=== PATIENT | female | born 1985 | race African-American/Black ===

== ENCOUNTER 2024-04-16 07:11 | Emergency (ER) | payer OTHER, SELFPAY ==
[2024-04-16] MEDS ORDERED: Ketorolac Tromethamine 30 MG (1 mL) VIAL ONE (07:55)
[2024-04-16] MEDS ORDERED: Dexamethasone 10 MG/ML VIAL ONE (07:55)
[2024-04-16] MEDS ORDERED: diphenhydrAMINE 50 MG/ML VIAL ONE (07:55)
[2024-04-16 09:26] LABS: Influenza A by NAA Not Detected (NotDetected); Influenza B by NAA Not Detected (NotDetected); RSV by NAA Not Detected (NotDetected); SARS-CoV-2 NAA Rapid Test Not Detected (NotDetected)
[2024-04-16] MEDS ORDERED: Tranexamic Acid 1,000 MG/10 ML VIAL ONE (10:08)
[2024-04-16 10:22] LABS: #Basophils 0.04 10x3/uL (0.0-0.2); #Eosinphils 0.15 10x3/uL (0.0-0.5); #Neutrophils 5.02 10x3/uL (1.5-8.4); %Basophils 0.5 % (0.0-2.0); %Eosinophils 1.9 % (0.0-6.0); %Monocytes 6.3 % (0.0-10.0); Hematocrit 32.3 % (34.9-44.5); Hemoglobin 9.4 g/dL (12.0-15.5); Mean Corpuscular HGB CONC 29.1 g/dL (32.0-36.0); Mean Corpuscular Hemoglobin 25.2 pg (27.0-33.0); Mean Corpuscular Volume 86.6 fL (81.6-98.3); Platelet Count 291 10x3/uL (150-450); Red Blood Cell (RBC) Count 3.73 10x6/uL (3.90-5.03)
[2024-04-16 11:00] LABS: ALT (SGPT) 12 U/L (8-55); AST (SGOT) 31 U/L (5-34); Alkaline Phosphatase 49 U/L (40-110); Anion Gap 14 mmol/L (10-20); BUN (Urea Nitrogen) 11 mg/dL (7.0-18.7); Bilirubin, Total 0.2 mg/dL (0.2-1.2); Calc. Creatinine Clearance 0 mL/min (70-130); Calcium 9.1 mg/dL (7.8-10.44); Carbon Dioxide 25 mmol/L (22-29); Chloride 104 mmol/L (98-107); Estimated GFR 111; Globulin 4.4 g/dL (2.4-3.5); Glucose 81 mg/dL (70-105); Potassium 4.7 mmol/L (3.5-5.1); Protein, Total 7.4 g/dL (6.0-8.3); Sodium 138 mmol/L (136-145)
== END 2024-04-16 11:31 | disposition short-term general hospital (02) ==
LOC: CSHERS 07:11
DX: T78.3XXA Angioneurotic edema, initial encounter (principal); I11.0 Hypertensive heart disease with heart failure; I50.9 Heart failure, unspecified; Z55.6 Problems related to health literacy; Z75.3 Unavailability and inaccessibility of health-care facilities
CPT/HCPCS: 0241U; 36415; 80053; 85025; 86850; 86900; 86901; 87081; 87430; 96372; 96374; 96375; J1100; J1200; J1885

== ENCOUNTER 2024-06-07 22:42 | Emergency (ER) | payer OTHER ==
[2024-06-08] MEDS ORDERED: Ondansetron PF 4 MG/2 ML Vial ONE (00:02)
[2024-06-08 00:11] LABS: #Basophils 0.03 10x3/uL (0.0-0.2); #Eosinphils 0.19 10x3/uL (0.0-0.5); #Monocytes 0.54 10x3/uL (0.0-1.1); #Neutrophils 6.87 10x3/uL (1.5-8.4); %Basophils 0.3 % (0.0-2.0); %Eosinophils 1.7 % (0.0-6.0); %Lymphocytes 31.8 % (18.0-47.0); %Monocytes 4.8 % (0.0-10.0); Hematocrit 39.5 % (34.9-44.5); Mean Corpuscular HGB CONC 30.4 g/dL (32.0-36.0); Mean Corpuscular Hemoglobin 24.9 pg (27.0-33.0); Mean Corpuscular Volume 82.1 fL (81.6-98.3); Mean Platelet Volume 11.5 fL (7.4-10.4); Platelet Count 319 10x3/uL (150-450); RBC Distribution Width 15.6 % (11.5-14.5); Red Blood Cell (RBC) Count 4.81 10x6/uL (3.90-5.03); White Blood Cell (WBC) Count 11.3 10x3/uL (3.5-10.5)
[2024-06-08 00:23] LABS: ALT (SGPT) 16 U/L (8-55); AST (SGOT) 12 U/L (5-34); Albumin 3.5 g/dL (3.5-5.0); Alkaline Phosphatase 56 U/L (40-110); Anion Gap 12 mmol/L (10-20); BUN (Urea Nitrogen) 21 mg/dL (7.0-18.7); Bilirubin, Total 0.2 mg/dL (0.2-1.2); Calc. Creatinine Clearance 0 mL/min (70-130); Calcium 9.6 mg/dL (7.8-10.44); Carbon Dioxide 30 mmol/L (22-29); Chloride 100 mmol/L (98-107); Estimated GFR 96; Globulin 3.5 g/dL (2.4-3.5); Glucose 109 mg/dL (70-105); Lipase 30 U/L (8-78); Potassium 4.2 mmol/L (3.5-5.1); Sodium 138 mmol/L (136-145)
[2024-06-08 00:29] LABS: Troponin I Less than 0.010 ng/mL (< 0.028)
[2024-06-08 00:51] LABS: Influenza A by NAA Not Detected (NotDetected); Influenza B by NAA Not Detected (NotDetected); SARS-CoV-2 NAA Rapid Test Not Detected (NotDetected)
== END 2024-06-08 01:14 | disposition home or self-care (01) ==
LOC: CSHERS 22:42
DX: R11.2 Nausea with vomiting, unspecified (principal); R19.7 Diarrhea, unspecified; I11.0 Hypertensive heart disease with heart failure; I50.9 Heart failure, unspecified; J45.909 Unspecified asthma, uncomplicated; G40.909 Epilepsy, unspecified, not intractable, without status epilepticus; Z79.899 Other long term (current) drug therapy
CPT/HCPCS: 80053; 83690; 84484; 85025; 93005; 96374; J2405

== ENCOUNTER 2024-06-20 19:23 | Emergency (ER) | payer OTHER ==
[2024-06-20] MEDS ORDERED: Ibuprofen 800 MG TAB ONE (21:14)
[2024-06-20] MEDS ORDERED: Ipratropium Bromide 2.5 ml Neb ONE (22:18)
[2024-06-20] MEDS ORDERED: Albuterol 2.5 MG (3 mL) NEB ONE (22:18)
== END 2024-06-20 22:52 | disposition home or self-care (01) ==
LOC: CSHERS 19:23
DX: H92.01 Otalgia, right ear (principal); K21.9 Gastro-esophageal reflux disease without esophagitis; I11.0 Hypertensive heart disease with heart failure; I50.9 Heart failure, unspecified
CPT/HCPCS: 94640; 94644; 94760; J7611; J7644

== ENCOUNTER 2024-11-08 08:49 | Outpatient (CLI) | payer MEDICAID, OTHER | END 2024-11-08 08:50 | disposition home or self-care (01) | LOC: CSHSLEEP 08:49 | PROVIDERS: ATTEND Internal Medicine Critical Care Medicine | DX: G47.33 Obstructive sleep apnea (adult) (pediatric) (principal); J45.909 Unspecified asthma, uncomplicated; E66.9 Obesity, unspecified; Z68.44 Body mass index [BMI] 60.0-69.9, adult; I10 Essential (primary) hypertension | CPT/HCPCS: 95811 ==

== ENCOUNTER 2025-09-06 03:21 | Emergency (ER) | payer OTHER, SELFPAY ==
[2025-09-06] MEDS ORDERED: Ipratropium Bromide 2.5 ml Neb ONE (03:59)
[2025-09-06] MEDS ORDERED: Albuterol 2.5 MG (3 mL) NEB ONE (03:59)
[2025-09-06 04:20] LABS: #Basophils 0.06 10x3/uL (0.0-0.2); #Eosinophils 0.05 10x3/uL (0.0-0.5); #Monocytes 0.39 10x3/uL (0.0-1.1); #Neutrophils 4.49 10x3/uL (1.5-8.4); %Basophils 0.7 % (0.0-2.0); %Eosinophils 0.6 % (0.0-6.0); %Lymphocytes 37.7 % (18.0-47.0); %Monocytes 4.8 % (0.0-10.0); %Neutrophils 55.5 % (40.0-75.0); Hematocrit 34.3 % (34.9-44.5); Hemoglobin 10.5 g/dL (12.0-15.5); Mean Corpuscular Hemoglobin 24.1 pg (27.0-33.0); Mean Corpuscular Volume 78.9 fL (81.6-98.3); Platelet Count 288 10x3/uL (150-450); Red Blood Cell (RBC) Count 4.35 10x6/uL (3.90-5.03); White Blood Cell (WBC) Count 8.10 10x3/uL (3.5-10.5)
[2025-09-06 04:21] LABS: Actual Bicarbonate (HCO3v) 23.6 mEq/L (22-28); Analyzer IN Cardio CS ER; Base Excess -0.4 mEq/L (-2 - +2); Calcium, Ionized (venous) 1.06 mmol/L (1.16-1.32); Chloride (VBG) 103 mmol/L (98-106); Hematocrit-VBG 34 % (36.0-47.0); Hemoglobin (Hb) 11.7 g/dL (11.7-15.5); Potassium (VBG) 3.50 mmol/L (3.70-5.30); Puncture Site Other Site; RapidComm Collect By LAB; Sodium 140 mmol/L (133-146)
[2025-09-06 04:31] LABS: BHCG - Serum Negative (NEGATIVE); Pregs Control Background? CLEAR/WHITE (CLR/WHITE); Pregs Control Bar Appear? YES (CONTROL BAR)
[2025-09-06 04:38] LABS: ALT (SGPT) 11 U/L (Less than 34); AST (SGOT) 15 U/L (11-34); Albumin 3.4 g/dL (3.1-4.5); Alkaline Phosphatase 57 U/L (40-110); Anion Gap 12 mmol/L (10-20); BUN (Urea Nitrogen) 16 mg/dL (7.0-18.7); Bilirubin, Total 0.2 mg/dL (0.3-1.2); Calc. Creatinine Clearance 0 mL/min (70-130); Calcium 8.5 mg/dL (7.8-10.44); Carbon Dioxide 27 mmol/L (22-29); Chloride 105 mmol/L (98-107); Globulin 3.3 g/dL (2.4-3.5); Glucose 109 mg/dL (70-105); Potassium 3.6 mmol/L (3.5-5.1); Sodium 140 mmol/L (136-145)
[2025-09-06 04:42] LABS: Troponin I Less than 0.010 ng/mL (< 0.028)
== END 2025-09-06 05:10 | disposition home or self-care (01) ==
LOC: CSHERS 03:21
DX: J45.901 Unspecified asthma with (acute) exacerbation (principal); I11.0 Hypertensive heart disease with heart failure; I50.9 Heart failure, unspecified; Z79.899 Other long term (current) drug therapy
CPT/HCPCS: 71045; 80053; 82805; 83880; 84484; 84703; 85025; 87428; 93005; 94644; 94760; 96374; 96375; J2060; J2919; J7611; J7644

== ENCOUNTER 2025-09-07 04:52 | Inpatient (IN) | payer OTHER, SELFPAY ==
[2025-09-07] MEDS ORDERED: Albuterol 2.5 MG (3 mL) NEB ONE (05:56)
[2025-09-07] MEDS ORDERED: Azithromycin 500 MG VIAL ONE (06:02)
[2025-09-07] MEDS ORDERED: Dexamethasone 10 MG/ML VIAL ONE (06:02)
[2025-09-07] MEDS ORDERED: Magnesium 2 GM/50 ML BAG (IN WATER) ONE (06:03)
[2025-09-07] MEDS ORDERED: cefTRIAXone (ROCEPHIN) 2 GM VIAL ONE (06:03)
[2025-09-07 06:36] LABS: BHCG - Serum Negative (NEGATIVE); Pregs Control Background? CLEAR/WHITE (CLR/WHITE); Pregs Control Bar Appear? YES (CONTROL BAR)
[2025-09-07 06:45] LABS: ALT (SGPT) 11 U/L (Less than 34); AST (SGOT) 16 U/L (11-34); Albumin 3.7 g/dL (3.1-4.5); Alkaline Phosphatase 61 U/L (40-110); Anion Gap 16 mmol/L (10-20); BUN (Urea Nitrogen) 15 mg/dL (7.0-18.7); Bilirubin, Total 0.3 mg/dL (0.3-1.2); Calc. Creatinine Clearance 0 mL/min (70-130); Calcium 8.8 mg/dL (7.8-10.44); Carbon Dioxide 24 mmol/L (22-29); Chloride 109 mmol/L (98-107); Globulin 3.5 g/dL (2.4-3.5); Glucose 78 mg/dL (70-105); Potassium 4.2 mmol/L (3.5-5.1); Sodium 145 mmol/L (136-145)
[2025-09-07 07:14] LABS: #Basophils Less than 0.03 10x3/uL (0.0-0.2); #Eosinophils Less than 0.03 10x3/uL (0.0-0.5); #Monocytes 0.40 10x3/uL (0.0-1.1); #Neutrophils 7.92 10x3/uL (1.5-8.4); %Basophils 0.1 % (0.0-2.0); %Eosinophils 0.0 % (0.0-6.0); %Lymphocytes 16.2 % (18.0-47.0); %Monocytes 4.0 % (0.0-10.0); %Neutrophils 79.3 % (40.0-75.0); Hematocrit 35.3 % (34.9-44.5); Hemoglobin 10.5 g/dL (12.0-15.5); Mean Corpuscular Hemoglobin 24.0 pg (27.0-33.0); Mean Corpuscular Volume 80.6 fL (81.6-98.3); Platelet Count 271 10x3/uL (150-450); Red Blood Cell (RBC) Count 4.38 10x6/uL (3.90-5.03); White Blood Cell (WBC) Count 9.99 10x3/uL (3.5-10.5)
[2025-09-07 07:36] LABS: Troponin I Less than 0.010 ng/mL (< 0.028)
[2025-09-07] MEDS ORDERED: Oseltamivir 75 MG CAP ONE (07:48)
[2025-09-07 08:07] LABS: Actual Bicarbonate (HCO3v) 24.4 mEq/L (22-28); Analyzer IN Cardio CS ER; Base Excess 2.1 mEq/L (-2 - +2); Calcium, Ionized (venous) 0.99 mmol/L (1.16-1.32); Chloride (VBG) 106 mmol/L (98-106); Hematocrit-VBG 35 % (36.0-47.0); Hemoglobin (Hb) 11.8 g/dL (11.7-15.5); Potassium (VBG) 3.38 mmol/L (3.70-5.30); Puncture Site Other Site; RapidComm Collect By LAB; Sodium 141 mmol/L (133-146)
[2025-09-07] MEDS ORDERED: Albuterol 2.5 MG (3 mL) NEB NEB PRN (11:50)
[2025-09-07] MEDS ORDERED: Benzonatate 100 MG CAP PO PRN (11:53)
[2025-09-07] MEDS ORDERED: Senokot S 8.6-50 MG TAB PO PRN (11:57)
[2025-09-07] MEDS ORDERED: levETIRAcetam 500 MG TAB ONE (13:45)
[2025-09-07] MEDS ORDERED: Divalproex Sodium DR 500 MG TAB ONE (13:45)
[2025-09-07] MEDS ORDERED: Furosemide 40 MG (4 mL) VIAL ONE (13:45)
[2025-09-07] MEDS ORDERED: Gabapentin 300 MG CAP ONE (13:51)
[2025-09-07] MEDS: Gabapentin 300 MG CAP PO SCH ×2 (14:14→21:10)
[2025-09-07] MEDS: Divalproex Sodium 125 mg Sprinkle Capsule PO SCH (14:15)
[2025-09-07] MEDS: levETIRAcetam 500 MG TAB PO SCH ×2 (14:15→21:14)
[2025-09-07] MEDS: Furosemide 40 MG (4 mL) VIAL SLOW IVP SCH (14:15)
[2025-09-07] MEDS ORDERED: Mometasone 100 MCG/Formoterol 5 MCG 60 PUFF AEROSOL INH SCH (18:30)
[2025-09-07] MEDS: Oseltamivir 75 MG CAP PO SCH (21:14)
[2025-09-07] MEDS: Mupirocin 1 GM TUBE TP SCH (21:22)
[2025-09-08] MEDS: cefTRIAXone\\ROCEPHIN 1 GM in Sodium Chloride 0.9% 100 ML IVPB SCH (04:31)
[2025-09-08 04:51] LABS: #Basophils Less than 0.03 10x3/uL (0.0-0.2); #Eosinophils 0.17 10x3/uL (0.0-0.5); #Monocytes 0.36 10x3/uL (0.0-1.1); #Neutrophils 4.77 10x3/uL (1.5-8.4); %Basophils 0.0 % (0.0-2.0); %Eosinophils 2.9 % (0.0-6.0); %Lymphocytes 8.9 % (18.0-47.0); %Monocytes 6.2 % (0.0-10.0); %Neutrophils 81.5 % (40.0-75.0); Hematocrit 31.9 % (34.9-44.5); Hemoglobin 9.6 g/dL (12.0-15.5); Mean Corpuscular Hemoglobin 24.4 pg (27.0-33.0); Mean Corpuscular Volume 81.0 fL (81.6-98.3); Platelet Count 261 10x3/uL (150-450); Red Blood Cell (RBC) Count 3.94 10x6/uL (3.90-5.03); White Blood Cell (WBC) Count 5.85 10x3/uL (3.5-10.5)
[2025-09-08 05:04] LABS: Anion Gap 11 mmol/L (10-20); BUN (Urea Nitrogen) 13 mg/dL (7.0-18.7); Calc. Creatinine Clearance 336 mL/min (70-130); Calcium 8.6 mg/dL (7.8-10.44); Carbon Dioxide 29 mmol/L (22-29); Chloride 101 mmol/L (98-107); Glucose 164 mg/dL (70-105); Potassium 3.9 mmol/L (3.5-5.1); Sodium 137 mmol/L (136-145)
[2025-09-08] MEDS: Azithromycin 500 MG in Sodium Chloride 0.9% 250 ML 250 ML IVPB SCH (05:52)
[2025-09-08] MEDS: Enoxaparin 40 MG (0.4 mL) SYRINGE SC SCH (07:58)
[2025-09-08] MEDS: Mupirocin 1 GM TUBE TP SCH (07:59)
[2025-09-08] MEDS: Divalproex Sodium 125 mg Sprinkle Capsule PO SCH (08:12)
[2025-09-08] MEDS: Furosemide 40 MG (4 mL) VIAL SLOW IVP SCH (11:51)
[2025-09-08] MEDS: Benzonatate 100 MG CAP PO SCH ×2 (11:52→18:27)
[2025-09-08] MEDS: Enoxaparin 60 MG (0.6 mL) SYRINGE SC SCH (21:20)
[2025-09-08] MEDS: Famotidine 20 MG TAB PO SCH (21:22)
[2025-09-09 03:40] LABS: #Basophils Less than 0.03 10x3/uL (0.0-0.2); #Eosinophils Less than 0.03 10x3/uL (0.0-0.5); #Monocytes 0.49 10x3/uL (0.0-1.1); #Neutrophils 5.97 10x3/uL (1.5-8.4); %Basophils 0.0 % (0.0-2.0); %Eosinophils 0.0 % (0.0-6.0); %Lymphocytes 9.0 % (18.0-47.0); %Monocytes 6.9 % (0.0-10.0); %Neutrophils 83.7 % (40.0-75.0); Hematocrit 34.1 % (34.9-44.5); Hemoglobin 10.1 g/dL (12.0-15.5); Mean Corpuscular Hemoglobin 24.2 pg (27.0-33.0); Mean Corpuscular Volume 81.8 fL (81.6-98.3); Platelet Count 287 10x3/uL (150-450); Red Blood Cell (RBC) Count 4.17 10x6/uL (3.90-5.03); White Blood Cell (WBC) Count 7.13 10x3/uL (3.5-10.5)
[2025-09-09 03:52] LABS: Anion Gap 13 mmol/L (10-20); BUN (Urea Nitrogen) 14 mg/dL (7.0-18.7); Calc. Creatinine Clearance 352 mL/min (70-130); Calcium 8.9 mg/dL (7.8-10.44); Carbon Dioxide 30 mmol/L (22-29); Chloride 99 mmol/L (98-107); Glucose 215 mg/dL (70-105); Potassium 3.9 mmol/L (3.5-5.1); Sodium 138 mmol/L (136-145)
[2025-09-09] MEDS: Furosemide 40 MG (4 mL) VIAL SLOW IVP SCH (09:49)
[2025-09-09] MEDS: Mag-Al 1200 mg/1200 mg/30 ML UDCUP PO SCH (09:54)
[2025-09-09] MEDS ORDERED: HYDROcodone/Chlorphen Polis 5 ML UDCUP PO PRN (13:05)
[2025-09-10 03:19] LABS: #Basophils Less than 0.03 10x3/uL (0.0-0.2); #Eosinophils Less than 0.03 10x3/uL (0.0-0.5); #Monocytes 0.62 10x3/uL (0.0-1.1); #Neutrophils 7.95 10x3/uL (1.5-8.4); %Basophils 0.1 % (0.0-2.0); %Eosinophils 0.0 % (0.0-6.0); %Lymphocytes 10.6 % (18.0-47.0); %Monocytes 6.4 % (0.0-10.0); %Neutrophils 82.5 % (40.0-75.0); Hematocrit 34.4 % (34.9-44.5); Hemoglobin 10.2 g/dL (12.0-15.5); Mean Corpuscular Hemoglobin 24.2 pg (27.0-33.0); Mean Corpuscular Volume 81.5 fL (81.6-98.3); Platelet Count 294 10x3/uL (150-450); Red Blood Cell (RBC) Count 4.22 10x6/uL (3.90-5.03); White Blood Cell (WBC) Count 9.64 10x3/uL (3.5-10.5)
[2025-09-10 03:33] LABS: Anion Gap 12 mmol/L (10-20); BUN (Urea Nitrogen) 16 mg/dL (7.0-18.7); Calc. Creatinine Clearance 334 mL/min (70-130); Calcium 8.7 mg/dL (7.8-10.44); Carbon Dioxide 31 mmol/L (22-29); Chloride 97 mmol/L (98-107); Glucose 180 mg/dL (70-105); Potassium 4.2 mmol/L (3.5-5.1); Sodium 136 mmol/L (136-145)
[2025-09-10] MEDS: guaiFENesin/Codeine Phosphate 100 mg/10 mg 5 ml UD Cup PO PRN (11:21)
[2025-09-10] MEDS: Acetaminophen 325 MG TAB PO PRN (11:21)
[2025-09-10] MEDS: Benzocaine/Menthol 1 LOZ LOZ PO PRN (14:03)
[2025-09-11 04:03] LABS: #Basophils Less than 0.03 10x3/uL (0.0-0.2); #Eosinophils Less than 0.03 10x3/uL (0.0-0.5); #Monocytes 0.68 10x3/uL (0.0-1.1); #Neutrophils 7.64 10x3/uL (1.5-8.4); %Basophils 0.2 % (0.0-2.0); %Eosinophils 0.0 % (0.0-6.0); %Lymphocytes 12.4 % (18.0-47.0); %Monocytes 7.1 % (0.0-10.0); %Neutrophils 79.9 % (40.0-75.0); Hematocrit 37.3 % (34.9-44.5); Hemoglobin 11.2 g/dL (12.0-15.5); Mean Corpuscular Hemoglobin 24.3 pg (27.0-33.0); Mean Corpuscular Volume 81.1 fL (81.6-98.3); Platelet Count 302 10x3/uL (150-450); Red Blood Cell (RBC) Count 4.60 10x6/uL (3.90-5.03); White Blood Cell (WBC) Count 9.57 10x3/uL (3.5-10.5)
[2025-09-11 04:16] LABS: Anion Gap 15 mmol/L (10-20); BUN (Urea Nitrogen) 17 mg/dL (7.0-18.7); Calc. Creatinine Clearance 356 mL/min (70-130); Calcium 9.3 mg/dL (7.8-10.44); Carbon Dioxide 29 mmol/L (22-29); Chloride 98 mmol/L (98-107); Glucose 128 mg/dL (70-105); Potassium 5.0 mmol/L (3.5-5.1); Sodium 137 mmol/L (136-145)
[2025-09-11 06:39] VITALS: BMI 65.9
[2025-09-11] MEDS ORDERED: Mag-Al 1200 mg/1200 mg/30 ML UDCUP PO PRN (08:07)
[2025-09-11] MEDS: Guaifenesin DM 100-10/5 ML UDCUP PO PRN (13:42)
[2025-09-13 05:48] LABS: Hematocrit 38.2 % (34.9-44.5); Hemoglobin 11.4 g/dL (12.0-15.5); Mean Corpuscular Hemoglobin 23.8 pg (27.0-33.0); Mean Corpuscular Volume 79.9 fL (81.6-98.3); Platelet Count 335 10x3/uL (150-450); Red Blood Cell (RBC) Count 4.78 10x6/uL (3.90-5.03); White Blood Cell (WBC) Count 15.45 10x3/uL (3.5-10.5)
[2025-09-13 06:18] LABS: Anion Gap 14 mmol/L (10-20); BUN (Urea Nitrogen) 20 mg/dL (7.0-18.7); Calc. Creatinine Clearance 337 mL/min (70-130); Calcium 9.3 mg/dL (7.8-10.44); Carbon Dioxide 31 mmol/L (22-29); Chloride 96 mmol/L (98-107); Glucose 120 mg/dL (70-105); Potassium 4.7 mmol/L (3.5-5.1); Sodium 136 mmol/L (136-145)
[2025-09-13 06:45] LABS: MDiff Complete? YES
[2025-09-13 08:21] VITALS: BP 149/78; TEMP 98
== END 2025-09-13 14:11 | disposition home or self-care (01) | DRG 193 ==
LOC: CSHERS 04:52 → CSHERHOLD 10:02 → CSHICU 20:36 → CSHTELE 09-11 16:43
PROVIDERS: ADMIT Family Medicine; ATTEND Internal Medicine
PROC: 3E03329 Introduction of Other Anti-infective into Peripheral Vein, Percutaneous Approach (ICD-10-PCS; principal; 2025-09-07)
PROC: 5A09557 Assistance with Respiratory Ventilation, Greater than 96 Consecutive Hours, Continuous Positive Airway Pressure (ICD-10-PCS; 2025-09-07)
DX: J18.9 Pneumonia, unspecified organism (principal); J96.01 Acute respiratory failure with hypoxia; I50.32 Chronic diastolic (congestive) heart failure; Z68.44 Body mass index [BMI] 60.0-69.9, adult; E66.2 Morbid (severe) obesity with alveolar hypoventilation; I11.0 Hypertensive heart disease with heart failure; G40.909 Epilepsy, unspecified, not intractable, without status epilepticus; J44.89 Other specified chronic obstructive pulmonary disease; J10.1 Influenza due to other identified influenza virus with other respiratory manifestations; K21.9 Gastro-esophageal reflux disease without esophagitis; Z79.899 Other long term (current) drug therapy; Z91.148 Patient's other noncompliance with medication regimen for other reason; Z79.52 Long term (current) use of systemic steroids
CPT/HCPCS: 36415; 71045; 80048; 80053; 82805; 83605; 83880; 84484; 84703; 85025; 87040; 87428; 93005; 93010; 94640; 94644; 94760; 94762; 96374; 96375; J0456; J0696; J1100; J1650; J1940; J2919; J3475; J7050; J7611; J7626; Q0162